=== PATIENT | male | born 1995 | race Caucasian/White ===

== ENCOUNTER 2022-11-24 15:57 | Emergency (ER) | payer OTHER, SELFPAY ==
--- NOTE | 2022-11-24 16:10 | DI.MRI.S_ITS ---
PROCEDURE: MR LOWER LEG LT WO CON COMPARISON: None. INDICATIONS: pop with pain and disability while running Technique: Multiplanar and multisequence MR images of left lower leg were obtained without contrast. FINDINGS: Bones and joints: There is no marrow edema. No fracture or dislocation. No bony erosion or abnormal periosteal reaction. No suspicious intraosseous lesions. Soft tissues: There is edema within most inferior portion of medial and lateral heads of gastrocnemius muscle. No other muscle or tendon signal abnormality is seen. No fluid is seen situated between soleus muscle and gastrocnemius muscle. IMPRESSION: 1. Suggestion of low-grade partial-thickness tear involving inferior portion of both medial and lateral heads of gastrocnemius muscle. No full-thickness muscle or tendon rupture. No evidence of plantaris rupture. 2. No marrow edema. No fracture or dislocation. No suspicious bony lesions. No MR evidence of tibial stress injury. Dictated by: Tim Friend M.D. on 11/24/2022 at 18:30 Approved by: Tim Friend M.D. on 11/24/2022 at 18:33
[2022-11-24 16:11] VITALS: BP 139/86; PULSE 107; RESP 16; TEMP 37.4; O2SAT 96; BMI 34.4
--- NOTE | 2022-11-24 17:46 | PC.NURSE ---
Pt states he was doing a physical fitness exam for the triptap when he was running on the treadmill and felt a pop and a tearing sensation to his L calf.
[2022-11-24 17:57] VITALS: BP 127/75; PULSE 116; RESP 16; O2SAT 99
[2022-11-24 19:54] VITALS: BP 136/63; PULSE 104; RESP 14; O2SAT 99
--- NOTE | 2022-11-24 20:24 | ED_ITS ---
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 Began having increasing tightness in his right calf that progressed to the point he was unable to bear weight and unable to walk. He notes a year ago he had an episode after doing some heavy lifting at work where both calves were quite sore 24 hours after the event. This is a different presentation today. He is otherwise healthy with no recent fever, cough, chills, abdominal pain, palpitations. No prior DVTs and no significant past medical history. Related Data Previous Rx's Medication Instructions Recorded oxycodone-acetaminophen 5 mg-325 1 tab PO Q6H PRN pain #14 tabs 11/24/22 mg tablet Allergies Allergy/AdvReac Type Severity Reaction Status Date / Time No Known Drug Allergies Allergy Verified 11/24/22 16:11 Review of Systems Review of Systems Narrative: Pertinent positive and negative findings as per HPI Patient History Social History Smoking Status: Current some day smoker Smoking Status: Current some day smoker tobacco type: cigarettes alcohol intake frequency: a few times a week Alcohol type: beer Substance Use Type: does not use Exam Initial Vital Signs Initial Vital Signs: Vital Signs Temperature 99.3 F 11/24/22 16:11 Pulse Rate 107 H 11/24/22 16:11 Respiratory Rate 16 11/24/22 16:11 Blood Pressure 139/86 11/24/22 16:11 Pulse Oximetry 96 11/24/22 16:11 Oxygen Delivery Method Room Air 11/24/22 16:11 General: Alert appropriate in no acute distress Respiratory: Able to speak in full sentences, no obvious respiratory distress Skin: No obvious rashes, warm and dry Neurologic: Grossly intact no obvious asymmetries or abnormalities Psych: appropriate insight and affect, cooperative Extremity: Left calf is somewhat full and tender in the distal portion of the calf. No bruising, redness. He is able to dorsiflex his foot. He is tender enough that he does not want to bear weight on this foot Course Orders Ordered: ED Orders 11/24/22 16:10 MR lower leg LT wo con Stat Vital Signs Vital signs: Vital Signs - 8 hr 11/24/22 16:11 11/24/22 17:57 11/24/22 19:54 Temperature 99.3 F Pulse Rate 107 H 116 H 104 H Respiratory Rate 16 16 14 Blood Pressure 139/86 127/75 136/63 Pulse Oximetry 96 99 99 Oxygen Delivery Method Room Air Room Air Room Air MDM - Extremity Injury (Lower) MDM Narrative Medical decision making narrative: CC: Acute left calf pain. New problem with uncertain prognosis Data collected from: patient, Differential considered: Achilles tendon rupture, gastroc rupture, knee strain, ankle strain, calf strain Exam documented above, pertinent findings include: Tenderness in the lower portion of the calf without obvious fractures or infection Imaging studies independently reviewed: MRI Lower extremity: Low-grade partial- thickness tear of gastric pick no evidence of plantaris rupture. No fractures. Treatments: Oral ibuprofen, Damien wrap for comfort. Oral Percocet. Damien wrap applied to left calf for compression and comfort. Applied by myself. Neurovascularly intact following application. Discussion: 27-year-old gentleman with partial left gastroc tear. Discussed conservative management including compression, ice, ibuprofen Tylenol, brief use of narcotics. One of his friends has a knee scooter available at suggested that this would be helpful for overall pain control. Had questions about going on a trip for work next week that does include quite a bit of sitting but also lifting and carrying boxes. 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 Will place him on light duty that requires no use of his left leg until further evaluated. Discharge Plan Departure Patient Disposition: Home Clinical Impression: Gastrocnemius muscle tear Qualifiers: Encounter type: initial encounter Laterality: left Qualified Code(s): S86.112A - Strain of other muscle(s) and tendon(s) of posterior muscle group at lower leg level, left leg, initial encounter Activity Restrictions/Additional Instructions: Thank you for coming in today. You have a partial tear of your gastrocnemius muscle. This is the calf muscle. It is going to be more tender and swollen over the next 48 hours and can take up to 6 weeks to completely heal. Using compression (such as running compression socks), elevation, avoiding walking with the left leg as much as possible will all be helpful. You mentioned you have a friend who has a knee scooter, this will be very helpful if you are able to borrow this. Using 400 mg of ibuprofen (2 [id number] pills) and 1 Tylenol every 6 hours can be very helpful in controlling pain. For severe pain you can add 1 Percocet to this combination. If you choose to do that, please recognize the Percocet is a narcotic and can cause constipation. Please make sure you increase fluids and add either a stool softener extra dried fruit to prevent constipation. I am going to suggest limited work duties to include any duties that do not involve using your left leg. [place] when you can return to active duty. Prescriptions: New oxycodone-acetaminophen 5-325 mg tablet 1 tab PO Q6H PRN (Reason: pain) Qty: 14 0RF Referrals: ProviderJana [Primary Care Provider] - Stand Alone Forms: Patient Portal/API, Work Release Note
[2022-11-24] MEDS: OXYCODONE/APAP 5/325 PREPACK 1 BOTTLE MISC (21:00)
[2022-11-24] MEDS: OXYCODONE/ACETAMINOPHEN 5/325 TABLET 1 TAB PO (21:00)
[2022-11-24] MEDS: IBUPROFEN 400 MG TABLET PO (21:00)
[2022-11-24 21:06] VITALS: BP 122/68; PULSE 88; RESP 18; O2SAT 98
== END 2022-11-24 21:07 | disposition home or self-care (01) ==
PROVIDERS: Emergency Provider Emergency Medicine
DX: S86.112A Strain of other muscle(s) and tendon(s) of posterior muscle group at lower leg level, left leg, initial encounter (principal); W19.XXXA Unspecified fall, initial encounter; Y93.A1 Activity, exercise machines primarily for cardiorespiratory conditioning
CPT/HCPCS: 73718; 99284